=== PATIENT | male | born 1995 | race Caucasian/White ===

== ENCOUNTER 2017-02-27 03:44 | Emergency (ER) | payer OTHER ==
[~2017-02-27] VITALS: Ht 180.3 cm; Wt 145.1 kg
[~2017-02-27 03:44] MED LIST: ALBU-136 IH
[2017-02-27 03:47] VITALS: BP 139/54
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
--- NOTE | 2017-02-27 03:55 | NUR ---
PATIENT TO ER BED 6.
[2017-02-27] MEDS ORDERED: DICYCLOMINE HCL LIQUID 10 MG/5 ML UDC PO ONE (04:05)
[2017-02-27] MEDS ORDERED: LIDOCAINE VISCOUS 2% 20 ML UDC PO ONE (04:05)
[2017-02-27] MEDS ORDERED: ALUMINUM HYD/MAG/SIMETHICONE 30 ML UDC PO ONE (04:05)
--- NOTE | 2017-02-27 04:05 | NUR ---
Patient being evaluated by physician at bedside.
[2017-02-27] MEDS ORDERED: LIDOCAINE VISCOUS 2% 20 ML UDC ONE (04:12)
[2017-02-27] MEDS ORDERED: ALUMINUM HYD/MAG/SIMETHICONE 30 ML UDC ONE (04:12)
[2017-02-27] MEDS ORDERED: KETOROLAC 60 MG/2 ML VIAL IM ONE (04:20)
--- NOTE | 2017-02-27 06:57 | NUR ---
Patient discharged with v/s stable. Written and verbal after care instructions given and explained. Patient alert, oriented and verbalized understanding of instructions. Ambulatory with steady gait. All questions addressed prior to discharge. ID band removed. Patient advised to follow up with PMD. Rx of MAALOX AND PRILOSEC 40MG given. Patient educated on indication of medication including possible reaction and side effects. Opportunity to ask questions provided and answered.
[2017-02-27 06:58] VITALS: BP 122/67
== END 2017-02-27 06:57 | disposition home or self-care (01) ==
LOC: MED 03:44
DX: K29.00 Acute gastritis without bleeding (principal); R03.0 Elevated blood-pressure reading, without diagnosis of hypertension; J45.909 Unspecified asthma, uncomplicated
CPT/HCPCS: 93005; 96372; 99283; J1885

== ENCOUNTER 2017-05-11 19:38 | Emergency (ER) | payer OTHER ==
[~2017-05-11] VITALS: Ht 180.3 cm; Wt 151.2 kg
[2017-05-11 19:44] VITALS: BP 134/75
--- NOTE | 2017-05-11 21:43 | NUR ---
TO ER BED 3
--- NOTE | 2017-05-11 21:53 | NUR ---
Destinee contreras in [facility] - 05/11/17 at 2154 by MEDDM TO ER BED 3
--- NOTE | 2017-05-11 21:53 | NUR ---
21 YO M W/C/O BURNING PAIN ON L UPPER TIGHT, ARMS AND PAINFUL URINATION , SINCE YESTERDAY MORNING. PT STATES WAS EXPOSED TO [place] YESTERDAY AND NOTICIED THE BURNING PAIN STARTED AFTER. SLIGLTY WHEEZES NOTED, HX OF ASTHMA, O2 SAT 97% RA. ER MD MADE AWARE.
--- NOTE | 2017-05-11 21:59 | NUR ---
Female Sod Stripper (Susy EMT) accompanied ER MD for Male Pelvic Exam.
[2017-05-11] MEDS ORDERED: PHENAZOPYRIDINE 100 MG TAB PO ONE (22:05)
--- NOTE | 2017-05-11 22:20 | NUR ---
PT RESTING IN BED, AWATING FOR RESULTS. VSS, NO SS OF DISTRESS NOTED AT THE MOMENT.
[2017-05-11 22:29] LABS: APPEARANCE,URINE CLOUDY (CLEAR); BILIRUBIN,URINE NEGATIVE (NEGATIVE); BLOOD, URINE NEGATIVE (NEGATIVE); COLOR,URINE YELLOW (YELLOW); LEUKOCYTE ESTERASE ,URINE NEGATIVE (NEGATIVE); NITRITE, URINE NEGATIVE (NEGATIVE); PROTEIN,URINE TRACE (NEGATIVE); UGLUCOSE NEGATIVE (NEGATIVE)
[2017-05-11 22:44] LABS: BACTERIA,URINE None Seen /HPF (None Seen); CALCIUM OXALATE CRYSTALS,UR 0-3 /HPF (None Seen); RBC,URINE 0-5 (RARE) /HPF (0-5); SQUAMOUS EPITHELIAL CELL,UR None Seen /LPF (0-3 (FEW)); WBC,URINE 0-5 (RARE) /HPF (0-5)
[2017-05-11 22:45] LABS: URINE AMORPHOUS URATE 4+ /HPF (None Seen)
[2017-05-11 23:25] VITALS: BP 127/72
--- NOTE | 2017-05-11 23:25 | NUR ---
Patient discharged with v/s stable. Written and verbal after care instructions given and explained. Patient alert, oriented and verbalized understanding of instructions. Ambulatory with steady gait. All questions addressed prior to discharge. ID band removed. Patient advised to follow up with PMD OR RETURN BACK TO ER IF CONDITION WORSENS. Rx of PHENAZOPYRIDINE given. Patient educated on indication of medication including possible reaction and side effects. Opportunity to ask questions provided and answered.
[2017-05-15 07:23] LABS: CHLAMYDIA TRACHOMATIS AMP DNA Negative (Negative)
== END 2017-05-11 23:25 | disposition home or self-care (01) ==
LOC: MED 19:38
DX: N48.89 Other specified disorders of penis (principal); R30.0 Dysuria; J45.909 Unspecified asthma, uncomplicated
CPT/HCPCS: 36415; 81001; 87491; 99284

== ENCOUNTER 2018-05-05 07:21 | Emergency (ER) | payer MEDICAID ==
[~2018-05-05] VITALS: Ht 180.3 cm; Wt 140.6 kg
[2018-05-05 07:31] VITALS: BP 128/63
[2018-05-05] MEDS ORDERED: NACL 0.9% 1,000 ML IV SCH (07:57)
[2018-05-05 08:26] LABS: HEMATOCRIT 43.4 % (36-52); HEMOGLOBIN 14.6 g/dL (12.0-18.0); MEAN CORPUSCULAR HEMOGLOBIN 29 pg (27-31); MEAN CORPUSCULAR HGB CONC 34 g/dL (33-37); MEAN CORPUSCULAR VOLUME 85.2 fL (80-94); PLATELET COUNT (AUTO) 92 K/uL (140-450); RED CELL DISTRIBUTION WIDTH 14.7 % (11.6-13.7); WHITE BLOOD COUNT (AUTO) 4.5 K/uL (4.8-10.8)
[2018-05-05 08:30] LABS: APPEARANCE,URINE CLEAR (CLEAR); BILIRUBIN,URINE 2+ (NEGATIVE); BLOOD, URINE 2+ (NEGATIVE); LEUKOCYTE ESTERASE ,URINE NEGATIVE (NEGATIVE); NITRITE, URINE NEGATIVE (NEGATIVE); UGLUCOSE NEGATIVE (NEGATIVE)
[2018-05-05] MEDS ORDERED: NACL 0.9% 1,000 ML IV ONE (08:50)
[2018-05-05 08:53] LABS: ALBUMIN 3.4 g/dL (3.4-5.0); ANION GAP 12.7 (8-16); CARBON DIOXIDE 23.5 mmol/L (21-32); CREATININE 0.9 mg/dL (0.7-1.3); POTASSIUM 3.2 mmol/L (3.5-5.1); TOTAL BILIRUBIN 1.2 mg/dL (0.0-1.0)
[2018-05-05 09:01] LABS: COLOR,URINE AMBER (YELLOW)
[2018-05-05 09:03] LABS: RBC,URINE 20-50 /HPF (0-5); WBC,URINE 0-5 (RARE) /HPF (0-5)
[2018-05-05 09:44] LABS: LYMPHOCYTES % (MANUAL) 38 % (20-46); MONOCYTES % (MANUAL) 12 % (5-12)
[2018-05-05 09:49] VITALS: BP 121/65
[2018-05-05 10:00] LABS: BARBITURATE, URINE NEG. ng/ml (NEG <=200); BENZODIAZEPINE, URINE NEG. ng/mL (NEG <=200); CANNABINOID, URINE NEG. ng/mL (NEG <=50); COCAINE, URINE NEG. ng/mL (NEG <=300); OPIATE, URINE NEG. ng/mL (NEG <=2000); PHENCYCLIDINE SCREEN,URINE NEG. ng/mL (NEG <=25)
== END 2018-05-05 09:48 | disposition home or self-care (01) ==
LOC: MED 07:21
DX: I51.89 Other ill-defined heart diseases (principal); E86.0 Dehydration
CPT/HCPCS: 36415; 80053; 80305; 81001; 81002; 82150; 83690; 85025; 87086; 96360; 99284

== ENCOUNTER 2018-05-11 00:15 | Emergency (ER) | payer MEDICAID ==
[~2018-05-11] VITALS: Ht 180.3 cm; Wt 140.6 kg
[2018-05-11 00:30] VITALS: BP 130/85
[2018-05-11] MEDS ORDERED: AMOXICILLIN 500 MG CAP PO ONE (02:05)
[2018-05-11] MEDS ORDERED: DEXAMETHASONE 10 MG/ML VIAL IM ONE (02:05)
[2018-05-11] MEDS ORDERED: AMOXICILLIN 500 MG CAP ONE (02:21)
[2018-05-11 03:00] VITALS: BP 125/80
== END 2018-05-11 03:00 | disposition home or self-care (01) ==
LOC: MED 00:15
DX: J02.9 Acute pharyngitis, unspecified (principal); R50.9 Fever, unspecified; J45.909 Unspecified asthma, uncomplicated
CPT/HCPCS: 96372; 99283; J1100

== ENCOUNTER 2018-10-31 10:49 | Emergency (ER) | payer SELFPAY ==
[~2018-10-31] VITALS: Ht 180.3 cm; Wt 151.6 kg
[2018-10-31 10:58] VITALS: BP 121/80
--- NOTE | 2018-10-31 11:15 | NUR ---
ASTHMATIC PT WOKE UP THIS MORNING AT 0300 COUGHING, SOB AND SUBSEQUENT MID CHEST PAIN RADIATING TO HIS BACK. TOOK HIS ALBUTEROL INHALER BUT HIS CHEST PAIN PERSIST. UPON AUSCULTATION, WHEEZES HEARD ON EXPIRATION IN UPPER AND LOWER LOBES. PATIENT STATES PAIN OF 10/10 AT THIS TIME; VSS; PATIENT POSITIONED FOR COMFORT; HOB ELEVATED; BEDRAILS UP X1; BED DOWN. ER MD MADE AWARE OF PT STATUS.
[2018-10-31 12:50] VITALS: BP 121/80
== END 2018-10-31 12:50 | disposition home or self-care (01) ==
LOC: MED 10:49
DX: R05 Cough (principal); R07.2 Precordial pain; F17.210 Nicotine dependence, cigarettes, uncomplicated; J45.909 Unspecified asthma, uncomplicated; Z79.899 Other long term (current) drug therapy
CPT/HCPCS: 71045; 93005; 99283

== ENCOUNTER 2021-02-07 00:55 | Emergency (ER) | payer BC ==
[~2021-02-07] VITALS: Ht 180.3 cm; Wt 140.6 kg
[2021-02-07 01:10] VITALS: BP_SYST 145
--- NOTE | 2021-02-07 01:20 | NUR ---
PT IS A 25 Y.O MALE BIB SELF WITH C/O FLU LIKE SYMPTOMS. PT HAS A COUGH, RUNNY NOSE, AND REPORTS HAVING A FEVER EARLIER TODAY. THESE SYMPTOMS BEGAN YESTERDAY 02/06/21. PT DENIES ANY SOB. O2 SAT IS 98% ON RA. PT REPORTS LOSING TASTE AND SMELL TODAY. PT WAS IN CONTACT WITH FAMILY MEMBER WHO HAS TESTED POSITIVE FOR COVID 19. PT STATES HE ALSO HAS CHEST PAIN AT A SCALE OF 8/10, DULL AND ACHING. DENIES N/V/D. HX ASTHMA. NKA. CURRENT MEDICATION ALBUTEROL. WILL CONTINUE TO MONITOR.
[2021-02-07] MEDS ORDERED: DICYCLOMINE HCL LIQUID 20 MG, ALUMINUM HYD/MAG/SIMETHICONE 30 ML, LIDOCAINE VISCOUS 2% ... PO ONE ×3 (02:35)
[2021-02-07] MEDS ORDERED: DICYCLOMINE HCL LIQUID 10 MG/5 ML UDC ONE (02:52)
[2021-02-07] MEDS ORDERED: ALUMINUM HYD/MAG/SIMETHICONE 30 ML UDC ONE (02:52)
[2021-02-07] MEDS ORDERED: LIDOCAINE VISCOUS 2% 20 ML UDC ONE (02:52)
--- NOTE | 2021-02-07 03:24 | NUR ---
NOVEL SWAB COLLECTD AND SENT TO LAB. HANDED TO JC ONTIVEROS
[2021-02-07] MEDS ORDERED: MAG-27 PO (03:25)
[2021-02-07] MEDS ORDERED: NAPR-54 PO (03:25)
[2021-02-07 03:40] VITALS: BP 126/85
--- NOTE | 2021-02-07 03:40 | NUR ---
Patient discharged with v/s stable. Written and verbal after care instructions given and explained. Patient alert, oriented and verbalized understanding of instructions. Ambulatory with steady gait. All questions addressed prior to discharge. ID band removed. Patient advised to follow up with PMD. Rx of NAPROXEN AND MYLANTA given. Patient educated on indication of medication including possible reaction and side effects. Opportunity to ask questions provided and answered.
== END 2021-02-07 03:40 | disposition home or self-care (01) ==
LOC: MED 00:55
DX: J06.9 Acute upper respiratory infection, unspecified (principal); K21.9 Gastro-esophageal reflux disease without esophagitis; F12.10 Cannabis abuse, uncomplicated; J45.909 Unspecified asthma, uncomplicated; Z20.822 Contact with and (suspected) exposure to COVID-19
CPT/HCPCS: 71045; 99284; U0003

== ENCOUNTER 2021-05-13 16:55 | Emergency (ER) | payer SELFPAY ==
[~2021-05-13] VITALS: Ht 172.7 cm; Wt 159.7 kg
[~2021-05-13 16:55] MED LIST changes: +ALBU-118 IH; -ALBU-136 IH; +MAG-27 PO; +NAPR-54 PO
[2021-05-13 16:58] VITALS: BP 139/87
--- NOTE | 2021-05-13 17:08 | NUR ---
PT AMBULATED TO BED 9 WITH EVEN/STEADY GAIT
--- NOTE | 2021-05-13 17:17 | NUR ---
EMT AT BEDSIDE FOR EKG
--- NOTE | 2021-05-13 17:24 | NUR ---
DR SMART AT BEDSIDE EVALUATING PT
--- NOTE | 2021-05-13 17:25 | NUR ---
25 YO MALE C/O SYNCOPAL EPISODE APPROX 20MIN AGO. PT RECALLS WASHING HANDS AND THEN WOKE UP ON THE FLOOR WITH NO RECOLLECTION OF WHAT HAPPENED. PT REPORTS DIZZINESS, CHEST PAIN AND HEADACHE 05/03. UNKNOWN HEAD TRAUMA. DENIES NAUSEA/ VOMITING. DENIES SOB PT USED INHALER BEFORE COMING. A&OX4, RESPIRATIONS EVEN AND UNLABORED. 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 BED IN LOWEST POSITION, BRAKES LOCKED. X2 SIDERAILS UP FOR SAFETY. PMH: ANXIETY, ASTHMA MEDS: ALBUTEROL NKA
[2021-05-13] MEDS ORDERED: NACL 0.9% 1,000 ML IV ONE (17:30)
--- NOTE | 2021-05-13 17:41 | NUR ---
PT TAKEN TO CT VIA W/C
[2021-05-13 17:44] LABS: BASOPHILS % (AUTO) 0.3 % (0.0-2.0); EOSINOPHILS # (AUTO) 0.2 K/uL (0-0.4); EOSINOPHILS % (AUTO) 3.1 % (0.0-4.0); HEMATOCRIT 45.7 % (36-52); HEMOGLOBIN 15.5 g/dL (12.0-18.0); LYMPHOCYTES # (AUTO) 1.8 K/uL (2.0-11.5); LYMPHOCYTES % (AUTO) 22.2 % (20.5-51.1); MEAN CORPUSCULAR HEMOGLOBIN 29 pg (27-31); MEAN CORPUSCULAR HGB CONC 34 g/dL (33-37); MEAN CORPUSCULAR VOLUME 86.7 fL (80-94); MONOCYTES # (AUTO) 0.7 K/uL (0.8-1.0); MONOCYTES % (AUTO) 8.8 % (1.7-9.3); NEUTROPHILS # (AUTO) 5.3 K/uL (1.8-7.7); NEUTROPHILS % (AUTO) 65.6 % (42.2-75.2); PLATELET COUNT (AUTO) 222 K/uL (140-450); RED BLOOD CELL COUNT(AUTO) 5.27 MIL/uL (4.20-6.10); RED CELL DISTRIBUTION WIDTH 13.5 % (11.6-13.7); WHITE BLOOD COUNT (AUTO) 8.1 K/uL (4.8-10.8)
--- NOTE | 2021-05-13 17:56 | NUR ---
PT AMBULATED TO BATHROOM, PROVIDED UA.
[2021-05-13 18:01] LABS: ALBUMIN 3.7 g/dL (3.4-5.0); ANION GAP 7.2 (8-16); ASPARTATE AMINOTRANSFERASE 20 U/L (15-37); CARBON DIOXIDE 27.6 mmol/L (21-32); CHLORIDE 109 mmol/L (98-107); CREATININE 0.9 mg/dL (0.6-1.3); GFR ARICAN-AMERICAN 133 mL/min (>90); GLUCOSE 104 mg/dL (74-106); POTASSIUM 3.8 mmol/L (3.5-5.1); SODIUM SERUM 140 mmol/L (136-145); TOTAL BILIRUBIN 0.5 mg/dL (0.0-1.0); UREA NITROGEN, BLOOD 13 mg/dL (7-18)
--- NOTE | 2021-05-13 18:11 | NUR ---
IV 20G PLACED TO L FA.
[2021-05-13 19:09] VITALS: BP 114/80
--- NOTE | 2021-05-13 19:09 | NUR ---
Patient discharged with v/s stable. Written and verbal after care instructions given and explained REGARDING SYNCOPE. Patient verbalized understanding. Ambulatory with steady gait. All questions addressed prior to discharge. Advised to follow up with PMD.
[2021-05-13 19:16] LABS: BARBITURATE, URINE NEGATIVE ng/ml (NEG <=200); BENZODIAZEPINE, URINE NEGATIVE ng/mL (NEG <=200); CANNABINOID, URINE NEGATIVE ng/mL (NEG <=50); COCAINE, URINE NEGATIVE ng/mL (NEG <=300); OPIATE, URINE POSITIVE ng/mL (NEG <=2000); PHENCYCLIDINE SCREEN,URINE NEGATIVE ng/mL (NEG <=25)
== END 2021-05-13 19:09 | disposition home or self-care (01) ==
LOC: MED 16:55
DX: R55 Syncope and collapse (principal); R06.02 Shortness of breath; R42 Dizziness and giddiness; J45.909 Unspecified asthma, uncomplicated; F12.90 Cannabis use, unspecified, uncomplicated; F11.90 Opioid use, unspecified, uncomplicated; Z79.899 Other long term (current) drug therapy
CPT/HCPCS: 36415; 70450; 80053; 80305; 81002; 84484; 85025; 93005; 99285; G0482; J7030

== ENCOUNTER 2022-01-11 20:11 | Emergency (ER) | payer MEDICAID ==
[~2022-01-11] VITALS: Ht 180.3 cm; Wt 140.6 kg
[2022-01-11 20:22] VITALS: BP 151/79
--- NOTE | 2022-01-11 20:28 | NUR ---
Dr. Guillen at triage to exam patient.
[2022-01-11] MEDS ORDERED: KETOROLAC 30 MG/ML VIAL IM ONE (20:35)
[2022-01-11] MEDS ORDERED: MORPHINE SULFATE 4 MG/ML SYR IM ONE (20:50)
[2022-01-11] MEDS ORDERED: ONDANSETRON 4 MG ODT PO ONE (20:50)
[2022-01-11 21:29] LABS: APPEARANCE,URINE CLEAR (CLEAR); BILIRUBIN,URINE NEGATIVE (NEGATIVE); BLOOD, URINE 3+ (NEGATIVE); COLOR,URINE YELLOW (YELLOW); LEUKOCYTE ESTERASE ,URINE NEGATIVE (NEGATIVE); NITRITE, URINE NEGATIVE (NEGATIVE); UGLUCOSE NEGATIVE (NEGATIVE)
[2022-01-11 21:40] LABS: RBC,URINE >100 /HPF (0-5)
[2022-01-11 21:43] VITALS: BP 151/79
--- NOTE | 2022-01-11 21:43 | NUR ---
Patient discharged with v/s stable. Written and verbal after care instructions given and explained. Patient verbalized understanding. Ambulatory with steady gait. ID band removed. All questions addressed prior to discharge. Advised to follow up with PMD.
== END 2022-01-11 21:43 | disposition home or self-care (01) ==
LOC: MED 20:11
DX: N23 Unspecified renal colic (principal); N20.1 Calculus of ureter; J45.909 Unspecified asthma, uncomplicated; Z79.899 Other long term (current) drug therapy
CPT/HCPCS: 81001; 87086; 96372; 99284; J1885; J2270; Q0162; 81002

== ENCOUNTER 2022-01-19 09:42 | Emergency (ER) | payer MEDICAID ==
[~2022-01-19] VITALS: Ht 180.3 cm; Wt 173.0 kg
[2022-01-19 09:48] VITALS: BP 142/100
--- NOTE | 2022-01-19 09:57 | NUR ---
PATIENT AMBULATED TO BED11.
--- NOTE | 2022-01-19 10:00 | NUR ---
26 Y/O MALE C/O FEVER, CHILLS X LAST NIGHT, COUGH, GENERALIZED ABDOMINAL PAIN,DIARRHEA X 1 WEEK AND C/O N/V, HEADACHE X 3 DAYS. SEEN AT [facility] 1 WEEK AGO & WAS DX: KIDNEY STONE. ORAL TEMP 98.2 AT THIS TIME. PT TOOK IBUPROFEN 1 HOUR AGO. FEVER AT HOME WAS 101F. PT STATES 6/10 SHARP PAIN. PMH: ASTHMA, ANXIETY NKA
--- NOTE | 2022-01-19 10:18 | NUR ---
DR PARSONS AT BEDSIDE EXAMINING PT
[2022-01-19] MEDS ORDERED: ONDANSETRON 4 MG/2 ML VIAL IVP ONE (10:25)
[2022-01-19] MEDS ORDERED: KETOROLAC 15 MG/ML VIAL IVP ONE (10:25)
--- NOTE | 2022-01-19 10:32 | NUR ---
BLOOD WORK COLLECTED AND SENT TO LAB
[2022-01-19 10:38] LABS: APPEARANCE,URINE CLOUDY (CLEAR); BILIRUBIN,URINE NEGATIVE (NEGATIVE); BLOOD, URINE NEGATIVE (NEGATIVE); COLOR,URINE RED (YELLOW); LEUKOCYTE ESTERASE ,URINE TRACE (NEGATIVE); NITRITE, URINE POSITIVE (NEGATIVE); UGLUCOSE 1+ (NEGATIVE)
[2022-01-19 10:53] LABS: BASOPHILS % (AUTO) 0.3 % (0.0-2.0); EOSINOPHILS # (AUTO) 0.2 K/uL (0-0.4); HEMATOCRIT 43.8 % (36-52); HEMOGLOBIN 14.9 g/dL (12.0-18.0); LYMPHOCYTES # (AUTO) 1.3 K/uL (2.0-11.5); LYMPHOCYTES % (AUTO) 17.1 % (20.5-51.1); MEAN CORPUSCULAR HEMOGLOBIN 29 pg (27-31); MEAN CORPUSCULAR HGB CONC 34 g/dL (33-37); MEAN CORPUSCULAR VOLUME 85.5 fL (80-94); MONOCYTES # (AUTO) 0.7 K/uL (0.8-1.0); NEUTROPHILS # (AUTO) 5.3 K/uL (1.8-7.7); NEUTROPHILS % (AUTO) 70.6 % (42.2-75.2); PLATELET COUNT (AUTO) 254 K/uL (140-450); RED BLOOD CELL COUNT(AUTO) 5.13 MIL/uL (4.20-6.10); RED CELL DISTRIBUTION WIDTH 13.7 % (11.6-13.7); WHITE BLOOD COUNT (AUTO) 7.5 K/uL (4.8-10.8)
[2022-01-19 11:30] LABS: ANION GAP 13.5 (8-16); CARBON DIOXIDE 24.4 mmol/L (21-32); CREATININE 0.9 mg/dL (0.6-1.3); POTASSIUM 3.9 mmol/L (3.5-5.1)
--- NOTE | 2022-01-19 11:58 | NUR ---
PT TAKEN TO CT SCAN VIA SASKIA
--- NOTE | 2022-01-19 12:10 | NUR ---
PT RETURNED FROM CT
[2022-01-19 12:11] LABS: YEAST,URINE Rare /HPF (None Seen)
[2022-01-19 12:13] LABS: TRICHOMONAS,URINE None Seen /HPF (None Seen)
[2022-01-19 12:14] LABS: CALCIUM OXALATE CRYSTALS,UR None Seen /HPF (None Seen); OTHER CRYSTALS,URINE None Seen /HPF (None Seen); RBC,URINE 11-20 (MOD) /HPF (0-5); TRIPLE PHOSPHATE CRYSTAL,UR None Seen /HPF (None Seen); URIC ACID CRYSTALS,URINE None Seen /HPF (None Seen); URINE AMORPHOUS URATE None Seen /HPF (None Seen)
[2022-01-19 12:15] LABS: COARSE GRANULAR CASTS,URINE None Seen /LPF (None Seen); FINE GRANULAR CASTS,URINE None Seen /LPF (None Seen); HYALINE CASTS, URINE None Seen /LPF (None Seen); WAXY CASTS,URINE None Seen /LPF (None Seen)
--- NOTE | 2022-01-19 13:07 | NUR ---
Destinee contreras in ED - 01/19/22 at 1308 by RHIANNA CALLED TO HAVE DR. GISELA MASSEY FOR URILOGY CONSULT PER DR. PARSONS.
--- NOTE | 2022-01-19 13:08 | NUR ---
MD PARSONS AT PT BEDSIDE FOR RE-EVALUATION.
[2022-01-19 14:16] VITALS: BP 125/74
--- NOTE | 2022-01-19 14:16 | NUR ---
Patient discharged with v/s stable. Written and verbal after care instructions given and explained. Patient alert, oriented and verbalized understanding of instructions. Ambulatory with steady gait. All questions addressed prior to discharge. ID band removed. Patient advised to follow up with PMD. Opportunity to ask questions provided and answered.
== END 2022-01-19 14:16 | disposition home or self-care (01) ==
LOC: MED 09:42
DX: N20.0 Calculus of kidney (principal); R31.9 Hematuria, unspecified; R11.2 Nausea with vomiting, unspecified; J45.909 Unspecified asthma, uncomplicated; Z79.899 Other long term (current) drug therapy
CPT/HCPCS: 36415; 74177; 80048; 81001; 85025; 87086; 96374; 96375; 99285; J1885; J2405; Q9967

== ENCOUNTER 2022-02-13 17:10 | Emergency (ER) | payer MEDICAID ==
[~2022-02-13] VITALS: Ht 180.3 cm; Wt 140.6 kg
[2022-02-13 17:18] VITALS: BP 138/89
--- NOTE | 2022-02-13 17:27 | NUR ---
Patient ambulated to bed 11 with steady/even gait
[2022-02-13] MEDS ORDERED: cefTRIAXone 2,000 MG in DEXTROSE 5% 100 ML IV ONE (17:30)
[2022-02-13] MEDS ORDERED: NACL 0.9% 2,000 ML IV ONE (17:30)
[2022-02-13] MEDS ORDERED: KETOROLAC 15 MG/ML VIAL IVP ONE (17:30)
[2022-02-13] MEDS ORDERED: ONDANSETRON 4 MG/2 ML VIAL IVP ONE (17:30)
--- NOTE | 2022-02-13 17:45 | NUR ---
26 yo M pt c/o right lower abdomen stabbing 10/10 pain . pt states pain started last night and had a normal bowel movement. pt has n/v denies diarrhea or lightheadedness. Pt has previously been diagnosed with kidney stones earlier this month and was given Disputanta with mild relief. STEPHAN
--- NOTE | 2022-02-13 18:33 | NUR ---
urine sample collected and walked to lab
[2022-02-13 18:36] LABS: BASOPHILS % (AUTO) 0.1 % (0.0-2.0); EOSINOPHILS # (AUTO) 0.1 K/uL (0-0.4); EOSINOPHILS % (AUTO) 1.1 % (0.0-4.0); HEMATOCRIT 45.4 % (36-52); HEMOGLOBIN 15.1 g/dL (12.0-18.0); LYMPHOCYTES # (AUTO) 1.3 K/uL (2.0-11.5); LYMPHOCYTES % (AUTO) 11.4 % (20.5-51.1); MEAN CORPUSCULAR HEMOGLOBIN 28 pg (27-31); MEAN CORPUSCULAR HGB CONC 33 g/dL (33-37); MEAN CORPUSCULAR VOLUME 85.3 fL (80-94); NEUTROPHILS # (AUTO) 8.7 K/uL (1.8-7.7); NEUTROPHILS % (AUTO) 78.4 % (42.2-75.2); PLATELET COUNT (AUTO) 246 K/uL (140-450); RED BLOOD CELL COUNT(AUTO) 5.32 MIL/uL (4.20-6.10); RED CELL DISTRIBUTION WIDTH 13.6 % (11.6-13.7); WHITE BLOOD COUNT (AUTO) 11.2 K/uL (4.8-10.8)
[2022-02-13 18:48] LABS: APPEARANCE,URINE CLEAR (CLEAR); BILIRUBIN,URINE 1+ (NEGATIVE); BLOOD, URINE 3+ (NEGATIVE); COLOR,URINE YELLOW (YELLOW); LEUKOCYTE ESTERASE ,URINE NEGATIVE (NEGATIVE); NITRITE, URINE NEGATIVE (NEGATIVE); UGLUCOSE NEGATIVE (NEGATIVE)
[2022-02-13] MEDS ORDERED: cefTRIAXone 2,000 MG VIAL ONE (18:50)
[2022-02-13 19:03] LABS: ALBUMIN 3.6 g/dL (3.4-5.0); ANION GAP 12.6 (8-16); CARBON DIOXIDE 25.2 mmol/L (21-32); CREATININE 1.1 mg/dL (0.6-1.3); POTASSIUM 3.8 mmol/L (3.5-5.1); TOTAL BILIRUBIN 0.6 mg/dL (0.0-1.0)
--- NOTE | 2022-02-13 19:11 | NUR ---
REPORT GIVEN TO [facility] . TRANSFER OF CARE
--- NOTE | 2022-02-13 19:15 | NUR ---
pt states he feels better. denies pain and discomfort. all needs met at this time. bed locked in lowest position, side railsx2 for safety.
[2022-02-13 19:20] LABS: RBC,URINE >100 /HPF (0-5); WBC,URINE 0-5 /HPF (0-5)
[2022-02-13] MEDS ORDERED: NAPR-54 PO (19:32)
[2022-02-13 20:05] VITALS: BP 116/65
== END 2022-02-13 20:05 | disposition home or self-care (01) ==
LOC: MED 17:10
DX: N20.0 Calculus of kidney (principal); Z20.822 Contact with and (suspected) exposure to COVID-19; R11.2 Nausea with vomiting, unspecified; J45.909 Unspecified asthma, uncomplicated; Z79.899 Other long term (current) drug therapy; Z87.442 Personal history of urinary calculi
CPT/HCPCS: 36415; 74176; 80053; 81001; 83605; 83690; 85025; 87040; 87426; 96361; 96365; 96375; 99284; J0696; J1885; J2405

== ENCOUNTER 2023-06-10 12:21 | Emergency (ER) | payer MEDICAID ==
[~2023-06-10] VITALS: Ht 180.3 cm; Wt 145.3 kg
[2023-06-10 12:38] VITALS: BP 126/71; PULSE 58; RESP 20; TEMP 97.6; O2SAT 97
[2023-06-10 13:03] VITALS: O2SAT 97
[2023-06-10 13:39] VITALS: BP 143/87; PULSE 55; RESP 12; TEMP 97.7; O2SAT 97
== END 2023-06-10 13:39 | disposition home or self-care (01) ==
LOC: MED 12:21
DX: F41.9 Anxiety disorder, unspecified (principal); J45.909 Unspecified asthma, uncomplicated; Z79.899 Other long term (current) drug therapy
CPT/HCPCS: 93005; 99283